=== PATIENT | male | born 1970 | race Caucasian/White ===

== ENCOUNTER 2024-04-25 15:51 | Inpatient (IN) | payer OTHER ==
[~2024-04-25] VITALS: Ht 170.2 cm; Wt 101.9 kg
[2024-04-26] MEDS ORDERED: LR 1,000 ML IV SCH (08:45)
[2024-04-27] VITALS (9 sets, daily range): BP systolic 119–146; BP diastolic 77–91; PULSE 92–99; TEMP 97.4–98
[2024-04-27] MEDS ORDERED: Lidocaine PF 2% (20 MG/ML) 5 ML VIAL ONE ×2 (14:15→16:49)
[2024-04-27] MEDS ORDERED: Ondansetron 4 MG/2 ML VIAL ONE ×2 (14:15→16:49)
[2024-04-27] MEDS ORDERED: dexAMETHasone 10 MG/ML VIAL ONE ×2 (14:15→16:49)
[2024-04-27] MEDS ORDERED: fentaNYL 50 MCG/ML 2 ML VIAL ONE ×2 (14:16→16:50)
[2024-04-27] MEDS ORDERED: Rocuronium 50 MG/5 ML Multi-Dose VIAL ONE ×5 (14:16→16:50)
[2024-04-27] MEDS ORDERED: Midazolam 2 MG/2 ML VIAL ONE (14:20)
[2024-04-27] MEDS ORDERED: HYDROmorphone 2 MG/1 ML VIAL ONE ×2 (15:41→17:46)
[2024-04-27 16:01] LABS: BASO # 0.1 K/mm3 (0.0-0.2); BASO % 0.5 % (0.0-2.0); EOS # 0.2 K/mm3 (0.0-0.7); GRAN # 8.1 K/mm3 (1.4-6.5); GRAN % 75.8 % (42.2-75.2); HEMATOCRIT 42.2 % (42.0-52.0); HEMOGLOBIN 14.1 g/dl (13.5-18.0); LYMPH # 1.6 K/mm3 (1.2-3.4); LYMPH % 14.9 % (20.0-51.0); MEAN CELL VOLUME 85 fl (80.0-100.0); MEAN CORPUSCULAR HEMOGLOBIN 28 pg (27-31); MEAN CORPUSCULAR HGB CONC 33 g/dl (33.0-37.0); MEAN PLATELET VOLUME 9.5 fl (7.4-10.4); MONO # 0.7 K/mm3 (0.1-0.6); MONO % 6.3 % (1.7-9.3); PLATELET COUNT 450 K/mm3 (130-400); RED BLOOD COUNT 4.96 M/mm3 (4.20-5.60); REDCELL DISTRIBUTION WIDTH-CV 12.6 % (11.5-14.5)
[2024-04-27] MEDS ORDERED: PERCOCET 325 MG1 TA2 PO (16:08)
[2024-04-27] MEDS ORDERED: DUO-KAPS1 CAP PO (16:15)
[2024-04-27 16:17] LABS: ALBUMIN 3.9 g/dL (3.5-5.0); BILIRUBIN,TOTAL 0.5 mg/dL (0.2-1.2); CALCIUM 9.1 mg/dL (8.4-10.2); CREATININE, serum 0.88 mg/dL (0.72-1.25); TOTAL PROTEIN 7.6 g/dl (6.2-8.1)
[2024-04-27] MEDS ORDERED: CLARITIN 1010 MG/TAB PO (16:17)
[2024-04-27] MEDS ORDERED: LIDODERM 5% PATC1 EA TP (16:18)
[2024-04-27] MEDS ORDERED: TYLENOL 500MG500 MG PO (16:19)
[2024-04-27] MEDS ORDERED: ceFAZolin 2 G in Water For Injection,Sterile 20 ML IV SCH (17:00)
[2024-04-27] MEDS ORDERED: Naloxone 0.4 MG/ML VIAL IV PRN (17:00)
[2024-04-27] MEDS ORDERED: Ondansetron 4 MG/2 ML VIAL IV PRN ×2 (17:00→18:30)
[2024-04-27] MEDS ORDERED: Acetaminophen 500 MG TAB PO SCH (17:00)
[2024-04-27] MEDS ORDERED: Acetaminophen 500 MG TAB PO PRN (17:00)
[2024-04-27] MEDS ORDERED: oxyCODONE 5 MG TAB PO PRN (17:00)
[2024-04-27] MEDS ORDERED: Morphine 4 MG/ML VIAL IV PRN (17:00)
[2024-04-27] MEDS ORDERED: Mag/Al Hydrox/Simeth Susp 30 ML CUP PO PRN (17:00)
[2024-04-27] MEDS ORDERED: Magnes Hydrox (MOM) 80 MG/ML 30 ML CUP PO PRN (17:00)
[2024-04-27] MEDS ORDERED: NS 1,000 ML IV SCH (17:00)
[2024-04-27] MEDS ORDERED: Bisacodyl 5 MG TAB PO PRN (17:00)
[2024-04-27] MEDS ORDERED: fentaNYL 50 MCG/ML 1 ML SYRINGE/VIAL [PACU/SDC ONLY] IV PRN (18:30)
[2024-04-27] MEDS ORDERED: HYDROmorphone 1 MG/1 ML SYRINGE [PACU/SDC ONLY] IV PRN (18:30)
[2024-04-27] MEDS ORDERED: hydrALAZINE 20 MG/ML 1 ML VIAL IV PRN (18:30)
[2024-04-27] MEDS ORDERED: Sennosides/Docusate 8.6-50 MG TAB PO SCH (21:00)
[2024-04-27] MEDS ORDERED: Ascorbic Acid 500 MG TAB PO SCH (21:00)
--- NOTE | 2024-04-27 23:19 | NUR ---
patient arrived from PACU around 1999, alert and oriented x4. denies chest pain and shortness of breath. reports pain in left lower extremity around a 3/10, denies need for intervention at this time. left knee with zeroform, gauze, claudia wrap and knee immobilizer, CDI. fresh ice applied to left knee site, pt ambulate x2 assist with gait belt and crutches to bathroom to void and back in bed. SCDs in place on bilateral lower extremities. IV in LW is patent, site CDi with NS running at 100 ml/hr. pt tolerated small snacks provided. pt has no further needs, questions or concerns at this time. call light within reach.
[2024-04-28] VITALS (7 sets, daily range): BP systolic 130–146; BP diastolic 72–87; PULSE 98–104; TEMP 98.2–98.8
[2024-04-28] MEDS ORDERED: EPIPEN 2-PAK1 MG/ML IM (08:49)
[2024-04-28] MEDS ORDERED: Magnes Hydrox (MOM) 80 MG/ML 30 ML CUP PO SCH (09:00)
--- NOTE | 2024-04-28 11:07 | NUR ---
SHIFT ASSESSMENT COMPLETE. VSS. PATIENT AWAKE IN BED W/ AT BEDSIDE. ALL MORNING BEDS GIVEN ORDERED. PATIENT DECLINED PAIN MEDS AT THIS TIME. DRESSING TO LEFT KNEE CDI AND MOBILIZER IN PLACE. PATIENT HAS NO NEEDS AT THIS TIME. CALL LIGHT IN REACH
[2024-04-28] MEDS ORDERED: ULTRAM 50MG TAB50 MG PO (11:47)
[2024-04-28] MEDS ORDERED: CEPHALEXIN500 M1 PO (11:47)
[2024-04-28] MEDS ORDERED: ELIQUIS 2.5 PO (11:48)
[2024-04-28] MEDS ORDERED: PERCOCET 325 MG1 TA2 PO (11:48)
--- NOTE | 2024-04-28 14:17 | NUR ---
Early Childhood Teacher Assistant met with patient and his , Sukhi (ph#[phone]) to discuss discharge planning. Patient lives in [place], [place] and sees AMALIA Lee in [place] for primary care. Patient gets medications from [facility] in . Patient has a home CPAP and assistive devices that help him with shoes/socks. Patient has crutches at home and advised if he were to need a walker, he can go to his local [facility]. Patient advised he is independent with ADLS normally and plans to return home at time of discharge. Patient would like to do outpatient PT at the [facility]. SW faxed referral and orders. Patient does not have DPOA-HC at this time and was not interested in completing one. Discharge Plan: Home
== END 2024-04-28 13:50 | disposition home or self-care (01) | DRG 494 ==
LOC: SURG 04-27 14:29 → INPTSU 04-27 14:29 → SURG 04-27 17:00 → SDCO 04-27 17:00 → EDSTATUS 04-27 17:00 → SDCO 04-27 18:00 → SURG 04-27 20:00
PROVIDERS: ADMIT Orthopaedic Surgery
PROC: 0QSH04Z Reposition Left Tibia with Internal Fixation Device, Open Approach (ICD-10-PCS; principal; 2024-04-27 17:00)
DX: S82.142A Displaced bicondylar fracture of left tibia, initial encounter for closed fracture (principal); W17.89XA Other fall from one level to another, initial encounter; F32.A Depression, unspecified; Z87.891 Personal history of nicotine dependence; Z87.442 Personal history of urinary calculi; Z91.030 Bee allergy status; Y93.9 Activity, unspecified; Y92.9 Unspecified place or not applicable; Z79.899 Other long term (current) drug therapy
CPT/HCPCS: C1713; J0665; J0688; J1100; J1170; J1580; J2250; J2405; J2704; J2795; J3010; J7030; J7120